=== PATIENT | male | born 1950 | race Caucasian/White ===

== ENCOUNTER → 2023-08-25 08:19 | Outpatient (REF) | payer MEDICARE, BC, SELFPAY | LOC: RCS 08:19 | PROVIDERS: ATTENDING PHYSICIAN Nuclear Medicine Nuclear Cardiology; FAMILY PHYSICIAN Family Medicine | DX: R00.2 Palpitations (principal); I49.3 Ventricular premature depolarization; E78.2 Mixed hyperlipidemia | CPT/HCPCS: 93306 ==